=== PATIENT | male | born 1985 | race Caucasian/White ===

== ENCOUNTER → 2018-11-09 | Outpatient (CLI) | payer BC | LOC: MRI 08:18 | PROVIDERS: ATTEND Family Medicine | DX: M54.10 Radiculopathy, site unspecified (principal) ==

== ENCOUNTER 2020-11-13 14:21 | Emergency (ER) | payer BC ==
[~2020-11-13] VITALS: Ht 193 cm; Wt 136.1 kg
[2020-11-13 17:08] VITALS: BP 160/50
== END 2020-11-13 17:09 | disposition home or self-care (01) ==
LOC: ER 14:57
DX: J40 Bronchitis, not specified as acute or chronic (principal); R05 Cough; R06.02 Shortness of breath; F32.9 Major depressive disorder, single episode, unspecified; F17.210 Nicotine dependence, cigarettes, uncomplicated
CPT/HCPCS: 93005; 99283